=== PATIENT | female | born 1965 | race Caucasian/White ===

== ENCOUNTER → 2016-10-04 | Outpatient (CLI) | payer BC ==
[~2016-10-04] MED LIST: BCPILLS PO; CALC-20 PO; CHOL2000 PO; DOCU100C PO; LEVO100T PO; MONT1TAB3 PO; PANT1TAB48 PO; SELE200T PO; SULF800T23 PO
--- NOTE | 2016-10-08 13:47 | MAMMOGRAPHY REPORT ---
BILATERAL DIGITAL SCREENING MAMMOGRAM TOMOSYNTHESIS WITH CAD: 10/04/2016 CLINICAL HISTORY: Routine screening. Patient has no complaints. TECHNIQUE: Breast tomosynthesis in addition to standard 2D mammography was performed. Current study was also evaluated with a Computer Aided Detection (CAD) system. COMPARISON: Comparison is made to exams dated: 09/19/2015 mammogram, 09/15/2014 mammogram, 09/09/2013 m ammogram, 08/20/2012 mammogram, 08/15/2011 mammogram, and 08/09/2010 mammogram - [facility]. BREAST COMPOSITION: There are scattered areas of fibroglandular density in both breasts. FINDINGS: No suspicious masses, calcifications, or areas of architectural distortion are noted in e ither breast. There has been no significant interval change compared to prior exams. IMPRESSION: ACR BI-RADS CATEGORY 1: NEGATIVE There is no mammographic evidence of malignancy. A 1 year screening mammogram is recommended. The p atient will receive written notification of the results. Approximately 10% of breast cancers are not detected with mammography. A negative mammographic repor t should not delay biopsy if a clinically suggestive mass is present. Nicole Orr M.D. ah/:10/04/2016 16:37:01 Power And Recovery Supervisor: Zabrina REYES,R, M, [facility] letter sent: Normal 1/2 BI-RADS Code: ACR BI-RADS Category 1: Negative
== END | disposition home or self-care (01) ==
LOC: C.MAMM 15:59
PROVIDERS: ATTEND Obstetrics & Gynecology
DX: Z12.31 Encounter for screening mammogram for malignant neoplasm of breast (principal)

== ENCOUNTER → 2016-10-17 | Outpatient (CLI) | payer BC ==
--- NOTE | 2016-10-17 07:38 | DIAGNOSTIC IMAGING REPORT ---
CHEST CT WITHOUT CONTRAST CT DOSE: 446.58 mGy.cm HISTORY: Pulmonary nodule R91.1 Pulmonary [id number] TECHNIQUE: Multiaxial CT images of the chest were performed without contrast. COMPARISON: 01/23/2016 FINDINGS: Unchanged 3 mm right middle lobe pericardiac nodule. Lungs otherwise are clear. Minimal atelectatic change right middle lobe considered to be chronic scarring at this time. No new or interval process. Hilar and mediastinal regions continue to show several stable indeterminate nodes. IMPRESSION: Stable exam. Study at this time is considered to be a benign exam with no further follow-up recommended Electronically signed by: Vishnu Gardiner M.D. 10/17/2016 7:36 AM Dictated Date/Time: 10/17/2016 7:33 AM
== END | disposition home or self-care (01) ==
LOC: C.CTS 07:09
PROVIDERS: ATTEND Internal Medicine Pulmonary Disease
DX: R91.1 Solitary pulmonary nodule (principal)

== ENCOUNTER → 2016-11-17 | Outpatient (CLI) | payer BC | END | disposition home or self-care (01) | LOC: C.LAB 07:13 | PROVIDERS: ATTEND Physician Assistant | DX: E03.9 Hypothyroidism, unspecified (principal) ==

== ENCOUNTER → 2017-01-12 | Outpatient (CLI) | payer BC ==
[2017-01-12 09:09] LABS: BASO % 0.4 %; BASO ABS # 0.02 K/uL (0-0.2); COMPLETE YES; EOS % 5.5 %; HEMATOCRIT 42.3 % (37-47); IG% 0.2 %; LYMPH % 18.3 %; MEAN CELL VOLUME 86.3 fL (80-100); MEAN CORPUSCULAR HGB CONC 32.4 g/dl (32-36); MEAN PLATELET VOLUME 8.7 fL (7.4-10.4); MONO % 4.9 %; NEUT % 70.7 %; PLATELET COUNT 326 K/uL (130-400); WHITE BLOOD COUNT 5.46 K/uL (4.8-10.8)
[2017-01-12 09:35] LABS: ALT/SGPT 27 U/L (12-78); BLOOD UREA NITROGEN 9 mg/dl (7-18); BUN/CREATININE RATIO 12.1 (10-20); CARBON DIOXIDE 27 mmol/L (21-32); CHLORIDE 103 mmol/L (98-107); CREATININE 0.78 mg/dl (0.60-1.20); GLUCOSE 93 mg/dl (70-99); POTASSIUM 4.2 mmol/L (3.5-5.1); SODIUM 140 mmol/L (136-145)
[2017-01-12 09:38] LABS: ALKALINE PHOSPHATASE 72 U/L (45-117); AST/SGOT 13 U/L (15-37)
[2017-01-12 10:01] LABS: CALCIUM 8.9 mg/dl (8.5-10.1)
== END | disposition home or self-care (01) ==
LOC: C.LAB 08:27
PROVIDERS: ATTEND Physician Assistant
DX: R53.83 Other fatigue (principal); D50.9 Iron deficiency anemia, unspecified; R00.2 Palpitations; R00.0 Tachycardia, unspecified; E53.8 Deficiency of other specified B group vitamins; E55.9 Vitamin D deficiency, unspecified

== ENCOUNTER → 2017-01-17 | Outpatient (CLI) | payer BC | END | disposition home or self-care (01) | LOC: C.LAB 15:34 | PROVIDERS: ATTEND Physician Assistant | DX: E03.9 Hypothyroidism, unspecified (principal) ==

== ENCOUNTER → 2017-03-07 | Outpatient (CLI) | payer BC ==
[~2017-03-07] VITALS: Ht 161.3 cm; Wt 104.0 kg
[2017-03-07 10:08] VITALS: BP 136/84; PULSE 76; Ht 161.3 cm; Wt 104.0 kg
== END | disposition home or self-care (01) ==
LOC: C.NEUR 08:29
PROVIDERS: ATTEND Internal Medicine Pulmonary Disease
DX: G47.33 Obstructive sleep apnea (adult) (pediatric) (principal)

== ENCOUNTER → 2017-03-11 | Outpatient (CLI) | payer BC ==
--- NOTE | 2017-03-12 06:15 | PAP/PSG TECHNICIAN REPORT ---
[facility] Microeconomics Professor Polysomnogram Report Study name: None Report date: 03/12/2017 Study date: 03/11/2017 Referring Physician: ARJUN PAULA DO, DO Name: GREG ESCOBEDO Interpreting Physician: Arjun Paula D.O. Date of : 1965 Microeconomics Professor: Arlette Barrett [facility]. Sex: Female Age: 51 StudyType: PSG Weight: 229 lbs 16 in Height: 51 years, Height 5' 3.5" Neck Circum: BMI: 39.92 Medications: ARMOUR THYROID 15-60 MG, VIT B-6 100 MG, CALCIUM 600+D 400 MG, CENTRUM SILVER, CLOBETASOL PROPIONATE 0.05% EX OINT, CYCLAFEM, FEXOFENADINE 180 MG, IBUPROFEN 800 MG, LISINOPRIL 10 MG, MAGNESIUM 250 MG, METHOCARBAMOL 500 MG, MIRALAX, PROAIR HFA, PROTONIX 40 MG, RANITIDINE 300 MG, SINGULAIR 5 MG, TEMAZEPAM 15 MG, VENLAFAXINE 75 MG, VESICARE 5 MG, VIT B-12 100 MCG, VIT D 00950 UNIT, VIT D3 5000 UNIT Patient History 51 yr-old female here for a baseline/split study. She has a history of excessive daytime sleepiness, HTN, witnessed apneas, and frequent awakenings. Her Cabery scale is 17. The test was started on room air. ETCO2 testing was not utilized during this study. Room 3 Parameters Monitored NPSG: E1-M2, E2-M1, Fp1-M2, Fp2-M1, F3-M2, F4-M2, F4-M1, C3-M2, C4-M2, C4-M1, O1-M2, O2-M2, O2-M1, T3-M2, T4-M1, P3-M2, P4-M1, CHIN1, CHIN2, HR, EKG, Legs, PFLOW, SNOR, FLOW, CFLOW, Tidal Volume, THOR, ABDO, SpO2, PLTH, CPRESS, ETCO2 Wave, ETCO2, pH Sleep Architecture Sleep Stages Time at Lights Off 10:37:14 PM STAGES Time (min.) TST (%) Time at Lights On 5:46:44 AM Wake 76.0 -- Total Recording Time (TRT) 429.50 min. N1 53.0 15 Total Sleep Period (TSP) 402.5 min. N2 174.0 49 Total Sleep Time (TST) 353.5min. N3 50.0 14 Awake Time 76.0 min. REM 76.5 22 Wake after Sleep Onset 57.0 min. Sleep Efficiency (SE) 82 % Sleep Onset Latency (DIMAS) 19.0 min. Number of Stage 1 Shifts None Awakenings 16 Stage Changes 68 Number of REM periods 4 REM 76.5 22 REM Latency 126.5 min. NREM 277.0 78 Body Position Analysis Supine Right Left Side Prone Vertical Total Sleep Time (min.) 156.0 208.5 3.0 211.48 8.0 0.0 Total Sleep Time (%) 40% 59% 1% 60 0% N/A% Total Sleep Time REM (min.) 57.5 19.0 0.0 None 0.0 0.0 Total Sleep Time NREM (min.) 84.0 189.5 3.0 None 0.5 0.0 Intermittent Wake (min.) 14.5 32.8 21.3 None 7.5 0.0 Total Sleep Period (%) 39% None None None None None Arousals Myoclonus (PLM) * Events Count Index Events Count Index Spontaneous 24 4 Events Awake (PLMW) 35 27.6 Respiratory 5 1.0 Events Asleep w/ Arousal (PLMA) 12 2.0 PLM 12 2 Events Asleep w/o Arousal (PLMS) 42 7.1 Snoring 8 1 Total Asleep 54 9.2 Total 49 8 Total 89 12 Respiratory Analysis * CA OA MA CH H RERA Total Count 2 3 0 0 64 3 69 Index 0.3 0.5 0.0 0 10.9 1 12.2 Mean Duration 11.9 17.6 0.0 0.00 18.5 19.0 18.3 Longest Duration 12.0 19.7 0.0 0.00 0.0 22.0 35.5 Respiratory Event Summary Total Supine ~Supine Right Left Prone REM NREM Apneas Count 5 4 1 1 0 0 2 3 Index 0.8 2 0 0.3 0.0 0 2 1 Hypopneas (4% Desat) Count 64 58 6 6 0 0 64 0 Index 10.9 24.6 2 1.7 0.0 0.0 50.2 0.0 Apneas & All Hypopneas Count 69 62 7 7 0 0 66 3 Index 11.7 26 2 2 0 0 51.8 0.6 Respiratory Events ([employer] Reworker+All Hyp+RERA) Count 69 62 10 10 0 0 66 3 Index 12.2 26 3 2.9 0.0 0.0 51.8 1.3 Respiratory Related Arousal Count 5 62 4 4 0 0 3 3 Index 1.0 1 1 1 0 0 2 1 Snoring Analysis Supine Right Left Prone REM NREM Total Snore duration 21.3 min Snores count 41 817 0 0 18 840 858 Snore mean duration 1.5 Sec Snores index 17 235 0 0 14.1 181.9 145.6 TST with snoring (%) 6.0% Desaturation Event Summary: Minimum %SpO2 Event Count Mean/Min/Max Duration(sec.) Desaturation Index % Time In Bed > 90 72 22.9 / 6.8 / 59.5 10.8 96.8 86 - 90 5 11.4 / 7.8 / 16.0 31.1 2.3 81 - 85 0 N/A 0.0 0.7 76 - 80 1 10.0 / 10.0 / 10.0 98.6 0.1 71 - 75 0 N/A 0.0 0.0 66 - 70 0 N/A 0.0 0.0 61 - 65 0 N/A 0.0 0.0 56 - 60 0 N/A 0.0 0.0 51 - 55 0 N/A 0.0 0.0 < 50 0 N/A 0.0 0.0 Total REM NREM Awake <50% 0.0 min. 0.0 min. 0.0 min. 0.0 min. 51 - 60% 0.0 min. 0.0 min. 0.0 min. 0.0 min. 61 - 70% 0.0 min. 0.0 min. 0.0 min. 0.0 min. 71 - 80% 0.6 min. 0.4 min. 0.0 min. 0.2 min. 81 - 90% 12.7 min. 12.7 min. 0.1 min. 0.0 min. 91 - 100% 399.9 min. 63.4 min. 275.5 min. 60.9 min. Average 94 93 94 95 Minimum SpO2 76 76 89 77 Desaturation Event Index 10.5 49.4 1.9 3.2 # Desat. Events below 89% 40 38 1 1 Time(%) with Saturation below 89% 2.0 2.0 0.0 0.0 Time(min.) with Saturation below 89% 8.3 8.1 0.0 0.2 Time (mins) REM (mins) NREM (mins) % of TST SpO2 Below 90% 48 47 N1 2.9 SpO2 Below 88% 13 0 0 2 Heart Rate Analysis Min (bpm) Max (bpm) Average (bpm) Awake 62 96 74 NREM 59 127 76 REM 59 87 74 Overall 59 127 75 Supplemental O2 Values Minimum O2 level: None Value Start Time End Time Microeconomics Professor Comments Ms. Escobedo slept in the right, left, supine and prone positions. No cardiac arrhythmia or PLMs were noted. No bruxism noted. Snoring was noted and scored as a 2 on a scale of 1 through 5. (0=no snoring, 5=snoring loud enough to be heard through a closed door or down the [address]). She did not meet specific Split-Night criteria during the diagnostic portion of this study. She awoke to use the restroom one time during the night. Ms. Escobedo stated that she slept about the same as usual. The final report will be interpreted and signed by a sleep physician. The completed physician report will then be placed in the patient medical record. Therapy (cm H2O) 0 TIB (min.) 429.5 TST (min.) 353.5 Sleep Onset (min.) 19.0 REM Onset From Sleep (min.) 126.5 Sleep Efficiency % 82 Wakefulness (%) 18 Wakefulness (min.) 76.0 NREM 1 (%) 15 NREM 1 (min.) 53.0 NREM 2 (%) 49 NREM 2 (min.) 174.0 NREM 3 (%) 14 NREM 3 (min.) 50.0 REM (%) 22 REM (min.) 76.5 # Arousals 49 Arousal Index 8 # Snore 858 Snore Index 145.6 AHI 11.7 AHI Supine 26 AHI Non-Supine 2 NREM AHI 0.6 REM AHI 51.8 RDI 12.2 # Obstructive Apnea 3 # Central Apnea 2 # Mixed Apnea 0 # Hypopneas 64 RERAs 3 Total Respiratory Events 72 Time Below SpO2 89% (min.) 8.1 Mean NREM SpO2 (%) 94 Mean REM SpO2 (%) 93 Mean Sleep SpO2 (%) 94 Min NREM SpO2 (%) 89 Min REM SpO2 (%) 76 Position Supine (min.) 156.0 Position Non-supine (min.) 212.0 LM Index Sleep 9.2 LM Index NREM 8.0 LM Index REM 13.3 Mean Heart Rate (bpm) 75 Min Heart Rate (bpm) 59
--- NOTE | 2017-03-13 17:42 | Sleep Study ---
Sleep Study Report Date of Service: 03/11/2017 Sleep Study Report Clinical data: The patient is a 51-year-old female with complaints of snoring, disturbed nocturnal sleep, observed apneas, and excessive daytime somnolence. Her Ellsworth score is 17 out of a possible 24. Her BMI is elevated at 39.92. She did undergo a home study in December of 2015. This suggested an apnea hypopnea index of only 2.4. In light of significant symptoms an in-lab sleep study is being performed. Sleep architecture: The total sleep period was 402.5 minutes. The total sleep time was 353.5 minutes. Sleep efficiency was mildly reduced to 82 percent. Sleep latency was 19 minutes. Wake after sleep onset was increased to 57 minutes. REM latency was prolonged to 126.5 minutes. Sleep consisted of stage N1 15 percent, stage N2 49 percent, stage N3 14 percent , and stage REM 22 percent. Arousal data: Patient had a total of 49 arousals including 24 spontaneous arousals, 5 respiratory arousals, 12 PLM arousals, and 8 snoring arousals. The arousal index was 8. PLM data: The patient had a total of 54 periodic limb movements of sleep for a PLM index of 9.2. There were 12 movements associated with arousals for a PLM arousal index of 2.0. EKG: The underlying cardiac rhythm was normal sinus. The cardiac rates ranged from 59 to 87 beats per minute. The average heart rate was 75 beats per minute. No arrhythmia was noted. Respiratory data: Patient had a total of 69 respiratory events including 2 central apneas, 3 obstructive apneas, and 64 hypopneas. The longest apnea was 19.7 seconds. The mean duration of the hypopneas was 18.5 seconds. Hypopneas were scored according to the 4 percent desaturation rule. The patient also had 3 RERAs. The apnea-hypopnea index was abnormal at 11.7 events per hour. This would reflect mild obstructive sleep apnea. Oximetry data: Oxygen saturation averaged 94 percent. The minimum saturation was 76 percent. There was a total of 8.3 minutes with saturations less than 89 percent. Data Integrity Analyst comments: The patient slept on the right, left, supine, and prone positions. No cardiac arrhythmia noted. No bruxism noted. Snoring was noted and scored as a 2 on a scale of 1 through 5. The patient awoke to use the restroom 1 time during the night. She indicated that she slept about the same as usual. Impressions: 1. Obstructive sleep apnea-mild Comments: The patient has mild sleep apnea as assessed by the apnea-hypopnea index. It is definitively abnormal and she has many symptoms as noted above. She also has comorbidities including hypertension, asthma, reflux, and hypothyroidism. It is strongly advised that the patient be treated with nasal CPAP. This could be accomplished by returning for an in-lab CPAP titration study. Alternatively she could be treated with auto CPAP. There was a high propensity for respiratory events to occurred during REM sleep. Her apnea-hypopnea index during REM was 51.8 where as in non-REM the apnea-hypopnea index was only 0.6. The desaturations that she had occurred during REM sleep. Recommendations: 1. It is suggested that the patient be given a trial of nasal CPAP. 2. Weight loss is advised in light of the elevation of body mass index of 39.92. 3. It is suggested that the patient avoid sleeping in the supine position. During this study the apnea-hypopnea index in the supine position was 26 and the apnea-hypopnea index non-supine was only 2. 4. Further suggestions will be made following treatment with nasal CPAP therapy. Copies To 1: Brandi Gerrado; Arjun Moyer DO; Jewels Cazares M.D.
== END | disposition home or self-care (01) ==
LOC: C.NEUR 21:00
PROVIDERS: ATTEND Internal Medicine Pulmonary Disease
DX: G47.33 Obstructive sleep apnea (adult) (pediatric) (principal)

== ENCOUNTER → 2017-05-02 | Outpatient (CLI) | payer BC | END | disposition home or self-care (01) | LOC: C.PAPS 08:19 | PROVIDERS: ATTEND Obstetrics & Gynecology | DX: Z01.419 Encounter for gynecological examination (general) (routine) without abnormal findings (principal) ==

== ENCOUNTER → 2017-08-17 | Outpatient (CLI) | payer BC ==
[~2017-08-17] MED LIST changes: +PANT1TAB3 PO; -PANT1TAB48 PO
== END | disposition home or self-care (01) ==
LOC: C.LAB 08:55
PROVIDERS: ATTEND Physician Assistant
DX: E03.9 Hypothyroidism, unspecified (principal)

== ENCOUNTER → 2017-08-22 | Outpatient (CLI) | payer BC | END | disposition home or self-care (01) | LOC: C.RAD1850 15:25 | DX: M77.32 Calcaneal spur, left foot (principal) ==

== ENCOUNTER → 2017-10-11 | Outpatient (CLI) | payer BC ==
--- NOTE | 2017-10-14 15:18 | MAMMOGRAPHY REPORT ---
BILATERAL DIGITAL SCREENING MAMMOGRAM TOMOSYNTHESIS WITH CAD: 10/11/2017 TECHNIQUE: Breast tomosynthesis in addition to standard 2D mammography was performed. Current study was also evaluated with a Computer Aided Detection (CAD) system. COMPARISON: Comparison is made to exams dated: 10/04/2016 mammogram, 08/15/2011 mammogram, 09/19/2015 ma mmogram, 09/15/2014 mammogram, 09/09/2013 mammogram, and 08/20/2012 mammogram - [facility]. BREAST COMPOSITION: There are scattered areas of fibroglandular density in both breasts. FINDINGS: No suspicious masses, calcifications, or areas of architectural distortion are noted in ei ther breast. There has been no significant interval change compared to prior exams. Scattered bilater al benign-appearing calcifications are not significantly changed. IMPRESSION: ACR BI-RADS CATEGORY 2: BENIGN There is no mammographic evidence of malignancy. A 1 year screening mammogram is recommended. The pa tient will receive written notification of the results. Approximately 10% of breast cancers are not detected with mammography. A negative mammographic report should not delay biopsy if a clinically suggestive mass is present. Nicole Orr M.D. ah/:10/11/2017 16:35:05 Forensic Anthropologist: Michelle REYES(R)(M), [facility] letter sent: Normal 1/2 BI-RADS Code: ACR BI-RADS Category 2: Benign
== END | disposition home or self-care (01) ==
LOC: C.MAMM 16:09
PROVIDERS: ATTEND Obstetrics & Gynecology
DX: Z12.31 Encounter for screening mammogram for malignant neoplasm of breast (principal)

== ENCOUNTER → 2017-11-04 | Outpatient (CLI) | payer BC | END | disposition home or self-care (01) | LOC: C.LAB 09:06 | PROVIDERS: ATTEND Physician Assistant | DX: E03.9 Hypothyroidism, unspecified (principal) ==

== ENCOUNTER → 2017-12-09 | Outpatient (CLI) | payer BC ==
[2017-12-11 14:52] LABS: CLAM CLASS 0; CLAM IGE <0.10 KU/L; CRAB CLASS 0; CRAB IGE <0.10 KU/L; LOBSTER CLASS 0; LOBSTER IGE <0.10 KU/L; SHRIMP CLASS 0; SHRIMP IGE <0.10 KU/L
== END | disposition home or self-care (01) ==
LOC: C.LAB1850 16:28
PROVIDERS: ATTEND Physician Assistant Medical
DX: L50.9 Urticaria, unspecified (principal)

== ENCOUNTER → 2018-03-15 | Outpatient (CLI) | payer BC ==
[2018-03-15 09:27] LABS: EOS % 7.2 %; EOS ABS # 0.36 K/uL (0-0.5); HEMATOCRIT 41.8 % (37-47); HEMOGLOBIN 14.6 g/dL (12.0-16.0); IG# 0.02 K/uL (0.00-0.02); LYMPH % 21.3 %; LYMPH ABS # 1.06 K/uL (1.2-3.4); MEAN CELL VOLUME 89.1 fL (80-100); MEAN CORPUSCULAR HEMOGLOBIN 31.1 pg (25-34); MEAN CORPUSCULAR HGB CONC 34.9 g/dl (32-36); MEAN PLATELET VOLUME 8.8 fL (7.4-10.4); NEUT % 65.1 %; NEUT ABS # 3.23 K/uL (1.4-6.5); PLATELET COUNT 281 K/uL (130-400); RED CELL DISTRIBUTION WIDTH CV 12.9 % (11.5-14.5); RED CELL DISTRIBUTION WIDTH SD 41.9 fL (36.4-46.3); WHITE BLOOD COUNT 4.97 K/uL (4.8-10.8)
[2018-03-15 09:55] LABS: ALBUMIN 3.6 gm/dl (3.4-5.0); ALKALINE PHOSPHATASE 70 U/L (45-117); ALT/SGPT 19 U/L (12-78); AST/SGOT 13 U/L (15-37); BLOOD UREA NITROGEN 15 mg/dl (7-18); CALCIUM 9.3 mg/dl (8.5-10.1); CARBON DIOXIDE 30 mmol/L (21-32); CHOLESTEROL 129 mg/dl (0-200); CREATININE 0.83 mg/dl (0.60-1.20); GLUCOSE 88 mg/dl (70-99); LDL CHOLESTEROL CALCULATED 81 mg/dl; POTASSIUM 4.1 mmol/L (3.5-5.1); SODIUM 137 mmol/L (136-145); TOTAL PROTEIN 6.8 gm/dl (6.4-8.2)
== END | disposition home or self-care (01) ==
LOC: C.LAB 08:51
PROVIDERS: ATTEND Internal Medicine
DX: I10 Essential (primary) hypertension (principal); Z13.6 Encounter for screening for cardiovascular disorders; D51.0 Vitamin B12 deficiency anemia due to intrinsic factor deficiency